=== PATIENT | male | born 1955 | race Caucasian/White ===

== ENCOUNTER 2019-01-24 10:19 | Inpatient (IN) | payer OTHER ==
[~2019-01-24] VITALS: Ht 167.6 cm; Wt 74.8 kg
[2019-01-24] MEDS ORDERED: GLYBURIDE5 MG (11:28)
[2019-01-24] MEDS ORDERED: [UNRECOGNIZED DRUG - OTHER] (11:28)
[2019-01-24] MEDS ORDERED: CRESTOR5 MG (11:29)
[2019-01-24] MEDS ORDERED: ZEBETA (11:29)
[2019-01-25] MEDS ORDERED: BISOPROLOL FUMAR5 MG (08:26)
[2019-01-29] MEDS ORDERED: FLAGYL500MG PO (15:03)
[2019-01-29] MEDS ORDERED: INTESTINEX680 M1 PO (15:03)
[2019-01-29] MEDS ORDERED: ASA-EC81 MG PO (15:03)
[2019-01-29] MEDS ORDERED: CIPRO500 MG PO (15:03)
[2019-01-29] MEDS ORDERED: TOPROL XL25 M1 PO (15:03)
[2019-01-29] MEDS ORDERED: ALPRAZOLAM1 MG PO (15:03)
== END 2019-01-29 15:55 | disposition home or self-care (01) | DRG 392 ==
LOC: ER 10:19 → MEDJ 20:18
PROVIDERS: ADMIT Internal Medicine
PROC: BW21ZZZ Computerized Tomography (CT Scan) of Abdomen and Pelvis (ICD-10-PCS; 2019-01-24)
PROC: 4A033R1 Measurement of Arterial Saturation, Peripheral, Percutaneous Approach (ICD-10-PCS; 2019-01-24)
PROC: B246ZZZ Ultrasonography of Right and Left Heart (ICD-10-PCS; principal; 2019-01-25)
DX: K52.89 Other specified noninfective gastroenteritis and colitis (principal); I25.810 Atherosclerosis of coronary artery bypass graft(s) without angina pectoris; I50.42 Chronic combined systolic (congestive) and diastolic (congestive) heart failure; N20.0 Calculus of kidney; I44.0 Atrioventricular block, first degree; I08.2 Rheumatic disorders of both aortic and tricuspid valves; I11.0 Hypertensive heart disease with heart failure; E11.65 Type 2 diabetes mellitus with hyperglycemia; Z79.4 Long term (current) use of insulin